=== PATIENT | male | born 2000 | race African-American/Black ===

== ENCOUNTER 2022-03-15 10:59 | Emergency (ER) | payer MEDICAID ==
[~2022-03-15] VITALS: Ht 177.8 cm; Wt 83.0 kg
[2022-03-15 11:07] VITALS: BP 136/72
== END 2022-03-15 13:07 | disposition left against medical advice (07) ==
LOC: ER 10:59
DX: R04.2 Hemoptysis (principal)
CPT/HCPCS: 99281